=== PATIENT | male | born 1940 | race Two or more races ===

== ENCOUNTER 2019-05-03 12:53 | Emergency (ER) | payer OTHER ==
[~2019-05-03] VITALS: Ht 175.3 cm; Wt 71.7 kg
[2019-05-03 13:14] VITALS: BP 111/79
[2019-05-03 13:38] LABS: Basophils # (auto) 0 uL; Basophils % (auto) 0.5 % (0.0-2.0); Eosinophils # (auto) 0 uL; Eosinophils % (auto) 0.7 % (0.0-7.0); Hematocrit 44.4 % (41.0-53.0); Hemoglobin 14.9 g/dL (13.5-17.5); Lymphocytes # (auto) 1.6 uL; Lymphocytes % (auto) 24.7 % (10.0-50.0); Mean Corpuscular Hemoglobin 30.1 pg (28.0-32.0); Mean Corpuscular Hgb Conc. 33.6 g/dL (32.0-36.0); Mean Corpuscular Volume 89.7 fL (80.0-100.0); Monocytes # (auto) 0.7 uL; Monocytes % (auto) 11.1 % (0.0-12.0); Neutrophils # (auto) 4.1 uL; Nucleated Red Blood Cells % 0.1 %; Platelet Count (auto) 250 10^3/uL (140-450); Red Blood Cells 4.95 10^6/uL (4.5-5.90); Red Cell Distribution Width 13.4 % (11.8-14.3); White Blood Cell 6.5 10^3/uL (4.4-10.8)
[2019-05-03 13:53] LABS: Albumin 3.6 g/dL (3.4-5.0); Calcium 9.5 mg/dL (8.5-10.1)
[2019-05-03 13:57] LABS: BUN/Creatinine Ratio 16.3; Bilirubin, Total 0.4 mg/dL (0.2-1.0); Total Protein 7.3 g/dL (6.4-8.2)
[2019-05-03 14:05] LABS: Potassium 5.7 mmol/L (3.5-5.1)
== END 2019-05-03 13:55 | disposition left against medical advice (07) ==
LOC: ER 13:00
DX: R41.82 Altered mental status, unspecified (principal); R53.1 Weakness; E87.5 Hyperkalemia; R73.9 Hyperglycemia, unspecified
CPT/HCPCS: 36415; 80053; 85025; 93005

== ENCOUNTER 2020-08-26 15:25 | Inpatient (IN) | payer OTHER ==
[~2020-08-26] VITALS: Ht 152.4 cm; Wt 64.9 kg
[2020-08-26 16:31] LABS: Basophils # (auto) 0 10 ^3/uL (0-0.2); Basophils % (auto) 0.5 % (0.0-2.0); Eosinophils # (auto) 0.1 10 ^3/uL (0-0.8); Eosinophils % (auto) 0.9 % (0.0-7.0); Hematocrit 42.4 % (41.0-53.0); Hemoglobin 14.4 g/dL (13.5-17.5); Lymphocytes # (auto) 0.9 10 ^3/uL (0.4-5.4); Lymphocytes % (auto) 15.2 % (10.0-50.0); Mean Corpuscular Hemoglobin 30.2 pg (28.0-32.0); Mean Corpuscular Volume 88.8 fL (80.0-100.0); Monocytes # (auto) 0.6 10 ^3/uL (0-1.3); Monocytes % (auto) 10.4 % (0.0-12.0); Neutrophils # (auto) 4.3 10 ^3/uL (1.6-8.6); Nucleated Red Blood Cells % 0.1 %; Platelet Count (auto) 323 10^3/uL (140-450); Red Blood Cells 4.78 10^6/uL (4.5-5.90); Red Cell Distribution Width 13.3 % (11.8-14.3); White Blood Cell 5.8 10^3/uL (4.4-10.8)
[2020-08-26] MEDS: LORazepam 2MG/ML-1ML VIAL IV ONE ×3 (16:45→17:22)
[2020-08-26] MEDS ORDERED: LORazepam 2MG/ML-1ML VIAL ONE (16:46)
[2020-08-26 16:48] LABS: Alanine Aminotransferase 52 U/L (16-61); Albumin 3.8 g/dL (3.4-5.0); Anion Gap 9 (5-15); Aspartate Aminotransferase 39 U/L (15-37); BUN/Creatinine Ratio 16.2; Blood Urea Nitrogen 21 mg/dL (7-18); Calcium 9.1 mg/dL (8.5-10.1); Carbon Dioxide 27 mmol/L (21-32); Chloride 105 mmol/L (98-107); GFR African American 68 mL/min; GFR Non-African American 56 mL/min; Glucose 142 mg/dL (74-106); Potassium 4.1 mmol/L (3.5-5.1); Sodium 141 mmol/L (136-145)
[2020-08-26] MEDS ORDERED: HALOPERIDOL LACTATE 5 MG/ML INJ VIAL IM ONE (17:45)
[2020-08-26] MEDS ORDERED: diphenhdrAMINE HCL 50 MG/1 ML VL IV ONE (18:00)
[2020-08-26] MEDS ORDERED: risperiDONE 1 MG TAB PO ONE (18:00)
[2020-08-26] MEDS ORDERED: MORPHINE SULF INJ 2 MG/ML SYRINGE 1ML IV PRN (18:00)
[2020-08-26] MEDS ORDERED: NITROGLYCERIN 0.4 MG SL TAB SL PRN (18:00)
[2020-08-26 18:10] LABS: Alkaline Phosphatase 75 U/L (45-117); Bilirubin, Total 0.6 mg/dL (0.2-1.0); Total Protein 7.9 g/dL (6.4-8.2)
[2020-08-27 01:29] LABS: Urine Bacteria FEW /hpf (None Seen); Urine Blood Negative /uL (Negative); Urine Hyaline Cast FEW /lpf (0 - 2); Urine Mucus FEW (None Seen); Urine WBC 1 /hpf (0 - 3)
[2020-08-27 09:00] VITALS: BP 127/61
[2020-08-27] MEDS: risperiDONE 1 MG TAB PO SCH (10:04)
[2020-08-27 13:00] VITALS: BP 131/86
[2020-08-27 17:00] VITALS: BP 136/75
[2020-08-27] MEDS: LORazepam 2MG/ML-1ML VIAL IV PRN (18:28)
[2020-08-27] MEDS ORDERED: HALOPERIDOL LACTATE 5 MG/ML INJ VIAL ONE (21:52)
[2020-08-27 22:00] VITALS: BP 136/76
[2020-08-27] MEDS: MIRTAZAPINE 30 MG TAB PO SCH (22:00)
[2020-08-27] MEDS: HALOPERIDOL LACTATE 5 MG/ML INJ VIAL IM PRN (22:05)
[2020-08-27] MEDS ORDERED: HALOPERIDOL LACTATE 5 MG/ML INJ VIAL IM PRN (22:30)
[2020-08-28] MEDS: LORazepam 2MG/ML-1ML VIAL IV PRN ×2 (02:57→19:40)
[2020-08-28 05:00] VITALS: BP 133/74
[2020-08-28 05:55] LABS: Basophils # (auto) 0 10 ^3/uL (0-0.2); Basophils % (auto) 0.4 % (0.0-2.0); Eosinophils # (auto) 0.1 10 ^3/uL (0-0.8); Eosinophils % (auto) 2.2 % (0.0-7.0); Hematocrit 36.8 % (41.0-53.0); Hemoglobin 12.9 g/dL (13.5-17.5); Lymphocytes # (auto) 1.1 10 ^3/uL (0.4-5.4); Lymphocytes % (auto) 21.7 % (10.0-50.0); Mean Corpuscular Hemoglobin 30.9 pg (28.0-32.0); Mean Corpuscular Volume 88.4 fL (80.0-100.0); Monocytes # (auto) 0.7 10 ^3/uL (0-1.3); Monocytes % (auto) 14.4 % (0.0-12.0); Neutrophils # (auto) 3.2 10 ^3/uL (1.6-8.6); Neutrophils % (auto) 61.3 % (37.0-80.0); Nucleated Red Blood Cells % 0.1 %; Platelet Count (auto) 258 10^3/uL (140-450); Red Blood Cells 4.16 10^6/uL (4.5-5.90); Red Cell Distribution Width 13.1 % (11.8-14.3); White Blood Cell 5.2 10^3/uL (4.4-10.8)
[2020-08-28 06:09] LABS: Potassium 3.8 mmol/L (3.5-5.1)
[2020-08-28 06:17] LABS: Calcium 8.6 mg/dL (8.5-10.1)
[2020-08-28 06:21] LABS: Folate (Folic Acid) 12.4 ng/mL (5.38-24)
[2020-08-28 09:20] VITALS: BP 119/71
[2020-08-28] MEDS: risperiDONE 1 MG TAB PO SCH (10:47)
[2020-08-28 13:51] VITALS: BP 114/69
[2020-08-28] MEDS: HALOPERIDOL LACTATE 5 MG/ML INJ VIAL IM PRN (15:12)
[2020-08-28 17:33] VITALS: BP 138/76
[2020-08-28 22:00] VITALS: BP 131/82
[2020-08-28] MEDS: MIRTAZAPINE 30 MG TAB PO SCH (22:00)
[2020-08-29] MEDS: HALOPERIDOL LACTATE 5 MG/ML INJ VIAL IM PRN (01:00)
[2020-08-29] MEDS: LORazepam 2MG/ML-1ML VIAL IV PRN ×2 (02:30→07:03)
[2020-08-29 05:00] VITALS: BP 134/86
[2020-08-29 09:00] VITALS: BP 149/89
[2020-08-29 13:00] VITALS: BP 143/81
== END 2020-08-29 14:20 | disposition home health service (06) | DRG 71 ==
LOC: ER 15:25 → EDBD 15:25 → TELE 17:57 → TELE-CENTR 08-27 09:06
PROVIDERS: ADMIT Nurse Practitioner Acute Care; ATTEND Internal Medicine
DX: G93.41 Metabolic encephalopathy (principal); F23 Brief psychotic disorder; G30.9 Alzheimer's disease, unspecified; Z20.822 Contact with and (suspected) exposure to COVID-19; K57.30 Diverticulosis of large intestine without perforation or abscess without bleeding; Z79.899 Other long term (current) drug therapy; Z80.9 Family history of malignant neoplasm, unspecified; Z83.3 Family history of diabetes mellitus; F02.80 Dementia in other diseases classified elsewhere, unspecified severity, without behavioral disturbance, psychotic disturbance, mood disturbance, and anxiety
CPT/HCPCS: 36415; 70450; 72192; 80048; 80053; 81001; 82607; 82746; 83735; 84443; 84484; 85025; 87426; 93005; 96372; 96374; 96375; 97110; 97116; 97163; 97530; A4565; G0378